=== PATIENT | female | born 1960 | race Caucasian/White ===

== ENCOUNTER 2020-03-24 11:48 | Inpatient (IN) | payer MEDICAID, OTHER ==
[~2020-03-24] VITALS: Ht 172.7 cm; Wt 60.0 kg
[2020-03-24 12:50] LABS: Basophils # (auto) 0.1 10 ^3/uL (0-0.2); Basophils % (auto) 0.8 % (0.0-2.0); Eosinophils # (auto) 0.1 10 ^3/uL (0-0.8); Eosinophils % (auto) 1.5 % (0.0-7.0); Hematocrit 41.4 % (36.0-46.0); Lymphocytes # (auto) 1.5 10 ^3/uL (0.4-5.4); Mean Corpuscular Hemoglobin 29.8 pg (28.0-32.0); Mean Corpuscular Hgb Conc. 33.9 g/dL (32.0-36.0); Monocytes # (auto) 0.3 10 ^3/uL (0-1.3); Monocytes % (auto) 5.1 % (0.0-12.0); Neutrophils # (auto) 4.7 10 ^3/uL (1.6-8.6); Neutrophils % (auto) 70.6 % (37.0-80.0); Nucleated Red Blood Cells % 0.1 %; Platelet Count (auto) 173 10^3/uL (140-450); Red Blood Cells 4.71 10^6/uL (4.0-5.20); Red Cell Distribution Width 13.4 % (11.8-14.3); White Blood Cell 6.7 10^3/uL (4.4-10.8)
[2020-03-24 13:11] LABS: Albumin 4.3 g/dL (3.4-5.0); Anion Gap 11 (5-15); Blood Urea Nitrogen 18 mg/dL (7-18); Calcium 9.4 mg/dL (8.5-10.1); Carbon Dioxide 20 mmol/L (21-32); Chloride 108 mmol/L (98-107); Glucose 206 mg/dL (74-106); Potassium 3.6 mmol/L (3.5-5.1); Sodium 139 mmol/L (136-145)
[2020-03-24 13:21] LABS: Alanine Aminotransferase 32 U/L (13-56); Alkaline Phosphatase 59 U/L (45-117); Aspartate Aminotransferase 14 U/L (15-37); BUN/Creatinine Ratio 17.1; Bilirubin, Total 0.6 mg/dL (0.2-1.0); GFR African American 69 mL/min; GFR Non-African American 57 mL/min; Total Protein 7.7 g/dL (6.4-8.2)
[2020-03-24 14:52] LABS: Urine WBC None Seen /hpf (0 - 5)
[2020-03-24] MEDS ORDERED: IOHEXOL 350 MG/ML 100ML IJ ONE (14:58)
[2020-03-24 15:05] LABS: Urine Bacteria NONE SEEN /hpf (None Seen); Urine Blood Negative /uL (Negative); Urine Specific Gravity 1.013 (1.001-1.035)
[2020-03-24] MEDS ORDERED: DEXTROSE (50%) 50ML SYRG IV PRN (19:00)
[2020-03-24] MEDS ORDERED: HYDROcodone-ACET 5/325MG TAB PO PRN (19:00)
[2020-03-24] MEDS ORDERED: hydrALAZINE HCL 20 MG/ML VL IV PRN (19:00)
[2020-03-24] MEDS ORDERED: ONDANSETRON HCL 4 MG/2 ML VIAL IV PRN (19:00)
[2020-03-24] MEDS ORDERED: ACETAMINOPHEN 500 MG TAB PO PRN (19:00)
[2020-03-24] MEDS ORDERED: NITROGLYCERIN 0.4 MG SL TAB SL PRN (19:00)
[2020-03-24] MEDS ORDERED: MORPHINE SULF INJ 2 MG/ML SYRINGE 1ML IV PRN ×2 (19:00)
[2020-03-24] MEDS ORDERED: METOCLOPRAMIDE HCL 5MG/ml INJ 2ml VIAL IV ONE (19:15)
[2020-03-24] MEDS: ATORVASTATIN 20 MG TAB PO SCH (21:48)
[2020-03-24] MEDS: METOPROLOL TARTRATE 25 MG TAB PO SCH (21:49)
[2020-03-24] MEDS: GABAPENTIN 100 MG CAP PO SCH (21:49)
[2020-03-24] MEDS: InsuLIN REG 1unit/0.01ml Soln (100units/ml) SC SCH (21:52)
[2020-03-24] MEDS: ACCU-CHEK COMFORT CURVE STRIP VI SCH (22:02)
[2020-03-24] MEDS: AMITRIPTYLINE HCL 10 MG TAB PO SCH (22:17)
[2020-03-25] MEDS: GABAPENTIN 100 MG CAP PO SCH ×3 (06:05→21:38)
[2020-03-25 06:33] LABS: Basophils # (auto) 0 10 ^3/uL (0-0.2); Basophils % (auto) 0.9 % (0.0-2.0); Eosinophils # (auto) 0.1 10 ^3/uL (0-0.8); Eosinophils % (auto) 2.5 % (0.0-7.0); Hemoglobin 14.5 g/dL (12.2-16.2); Lymphocytes # (auto) 1.6 10 ^3/uL (0.4-5.4); Mean Corpuscular Hemoglobin 30.3 pg (28.0-32.0); Mean Corpuscular Hgb Conc. 34.6 g/dL (32.0-36.0); Mean Corpuscular Volume 87.6 fL (80.0-100.0); Monocytes # (auto) 0.3 10 ^3/uL (0-1.3); Monocytes % (auto) 5.9 % (0.0-12.0); Neutrophils # (auto) 3.2 10 ^3/uL (1.6-8.6); Neutrophils % (auto) 59.7 % (37.0-80.0); Nucleated Red Blood Cells % 0.1 %; Platelet Count (auto) 145 10^3/uL (140-450); Red Blood Cells 4.79 10^6/uL (4.0-5.20); Red Cell Distribution Width 13.7 % (11.8-14.3); White Blood Cell 5.3 10^3/uL (4.4-10.8)
[2020-03-25 06:51] LABS: INR 1.02 (0.9-1.15); Partial Thromboplastin Time 22.5 sec (23.64-32.05)
[2020-03-25 06:54] LABS: Anion Gap 7 (5-15); Blood Urea Nitrogen 16 mg/dL (7-18); Carbon Dioxide 24 mmol/L (21-32); Chloride 109 mmol/L (98-107); GFR African American 89 mL/min; GFR Non-African American 74 mL/min; Glucose 155 mg/dL (74-106); Sodium 140 mmol/L (136-145)
[2020-03-25] MEDS: ACCU-CHEK COMFORT CURVE STRIP VI SCH ×4 (07:00→21:38)
[2020-03-25] MEDS: InsuLIN REG 1unit/0.01ml Soln (100units/ml) SC SCH ×4 (07:51→21:39)
[2020-03-25] MEDS: FAMOTIDINE 20 MG TAB PO SCH (09:38)
[2020-03-25] MEDS: METOPROLOL TARTRATE 25 MG TAB PO SCH ×2 (09:38→21:38)
[2020-03-25] MEDS: LISINOPRIL 10 MG TAB PO SCH (09:38)
[2020-03-25] MEDS: ASPirin-EC 81 mg tab PO SCH (09:38)
[2020-03-25] MEDS ORDERED: ADENOSINE IV STA (10:07)
[2020-03-25] MEDS ORDERED: GIVE UN DILUTED IV STA (10:07)
[2020-03-25 10:16] LABS: Cholesterol 235 mg/dL (< 200)
[2020-03-25 10:19] LABS: HDL Cholesterol 36 mg/dL (40-59); LDL Cholesterol 170 mg/dL (< 100); Triglycerides 160 mg/dL (< 150)
[2020-03-25] MEDS ORDERED: ADENOSINE 57 MG in GIVE UN-DILUTED 0 ML IV STA (11:14)
[2020-03-25 11:24] VITALS: BP 145/74
--- NOTE | 2020-03-25 15:51 | NUR ---
Telemetry admit from ER PAT VILLA admitted to Telemetry unit. No SBAR received . Patient oriented to Destinee Sepulveda, primary RN, unit, room, bed, and unit policies regarding patient care and visiting hours. Patient now on continuous telemetry monitoring, tele box #47A and telemetry reading on arrival to unit is SR. Patient placed on bedside oxygen, weighed by bedscale and encouraged to call if they need something. All questions and concerns addressed, patient verbalized understanding.
[2020-03-25] MEDS ORDERED: METF-370 PO (17:39)
--- NOTE | 2020-03-25 19:21 | NUR ---
closing shift Patient comfortably sitting up in bed. No s/s of distress/sob noted/stated. Bed at lowest locked position and call light within reach. Care endorsed to DIANE RN.
--- NOTE | 2020-03-25 19:40 | NUR ---
Opening Shift Note Assumed care of patient, awake and alert. No S/S of distress/SOB or pain. Patient aware of plan of care for tomorrow. Instructed on POC and to call for assist PRN, will continue to monitor for changes Q1hr and PRN.
[2020-03-25] MEDS: AMITRIPTYLINE HCL 10 MG TAB PO SCH (21:38)
[2020-03-25] MEDS: ATORVASTATIN 20 MG TAB PO SCH (21:38)
[2020-03-25 22:04] VITALS: BP 104/56
[2020-03-25 22:05] VITALS: BP_SYST 94; BP_SYST 96; BP_DIAS 49; BP_DIAS 58
[2020-03-26] VITALS (7 sets, daily range): BP systolic 92–115; BP diastolic 46–79
[2020-03-26 05:55] LABS: Basophils # (auto) 0.1 10 ^3/uL (0-0.2); Basophils % (auto) 0.9 % (0.0-2.0); Eosinophils # (auto) 0.1 10 ^3/uL (0-0.8); Eosinophils % (auto) 2.5 % (0.0-7.0); Hematocrit 42.7 % (36.0-46.0); Hemoglobin 14.3 g/dL (12.2-16.2); Lymphocytes # (auto) 1.6 10 ^3/uL (0.4-5.4); Lymphocytes % (auto) 28.1 % (10.0-50.0); Mean Corpuscular Hemoglobin 30.1 pg (28.0-32.0); Mean Corpuscular Hgb Conc. 33.6 g/dL (32.0-36.0); Mean Corpuscular Volume 89.5 fL (80.0-100.0); Monocytes # (auto) 0.3 10 ^3/uL (0-1.3); Monocytes % (auto) 5.6 % (0.0-12.0); Neutrophils # (auto) 3.5 10 ^3/uL (1.6-8.6); Neutrophils % (auto) 62.9 % (37.0-80.0); Nucleated Red Blood Cells % 0.1 %; Platelet Count (auto) 147 10^3/uL (140-450); Red Blood Cells 4.77 10^6/uL (4.0-5.20); Red Cell Distribution Width 13.9 % (11.8-14.3); White Blood Cell 5.6 10^3/uL (4.4-10.8)
[2020-03-26 06:08] LABS: INR 1.02 (0.9-1.15); Partial Thromboplastin Time 25.6 sec (23.64-32.05)
[2020-03-26 06:17] LABS: BUN/Creatinine Ratio 25.7; Calcium 9.1 mg/dL (8.5-10.1); Potassium 4.1 mmol/L (3.5-5.1)
[2020-03-26] MEDS: GABAPENTIN 100 MG CAP PO SCH ×3 (06:20→21:51)
[2020-03-26] MEDS: ACCU-CHEK COMFORT CURVE STRIP VI SCH ×4 (06:20→21:51)
[2020-03-26] MEDS: InsuLIN REG 1unit/0.01ml Soln (100units/ml) SC SCH ×4 (06:20→22:03)
--- NOTE | 2020-03-26 07:06 | NUR ---
Closing Note Endorsed care to dayshift nurse. No S/S of distress/SOB or pain.
--- NOTE | 2020-03-26 07:55 | NUR ---
Opening Shift Note Assumed care of patient, comfortably resting in bed, breath sounds even and unlabored. No S/S of distress/SOB. Instructed on POC and to call for assist PRN. Bed at lowest locked position and call light within reach. Will continue to monitor for changes Q1hr and PRN.
[2020-03-26] MEDS: METOPROLOL TARTRATE 25 MG TAB PO SCH ×2 (09:30→22:00)
[2020-03-26] MEDS: LISINOPRIL 10 MG TAB PO SCH (09:30)
[2020-03-26] MEDS: FAMOTIDINE 20 MG TAB PO SCH (09:32)
[2020-03-26] MEDS: ASPirin-EC 81 mg tab PO SCH (09:32)
--- NOTE | 2020-03-26 09:57 | NUR ---
Patient states" help i don't feel good" . Assessed patient and advised patient to stay in bed. VS:BP 129/72, HR 75, T97.4, Spo2 99%Blood glucose is 193, patient is refusing Insulin. Will continue to monitor.
[2020-03-26] MEDS ORDERED: SODIUM CHLORIDE 0.9% 1,000 ML IV ONE ×2 (10:15→20:45)
--- NOTE | 2020-03-26 11:45 | NUR ---
IV removal/IV leaking IV DC'd to left ac with clean sterile technique, catheter fully intact. Pressure dressing applied to site. Patient tolerated well.
--- NOTE | 2020-03-26 13:00 | NUR ---
IV insertion IV access obtained, via clean sterile technique by inserting gauge catheter at right FA after 3 attempts. IV secured properly. No trauma to site. Patient tolerated well.
--- NOTE | 2020-03-26 13:10 | NUR ---
Patient's daughter called requesting an update on moms status. Provided information after password was given .
--- NOTE | 2020-03-26 13:58 | NUR ---
Patient taken to label maker for procedure.
[2020-03-26] MEDS ORDERED: HEPARIN SODIUM (PORCINE) 5000 UNITS/ML 1ML VIAL ONE (15:33)
[2020-03-26] MEDS ORDERED: IODIXANOL 320MG/ML 100ML BTL IV ONE ×2 (15:33→15:55)
[2020-03-26] MEDS ORDERED: LIDOCAINE 2%HCL (LOCAL ANESTH.) INJ 20ML MDV ONE (15:33)
[2020-03-26] MEDS ORDERED: VERAPAMIL 2.5MG/ML INJ 2ML VIAL IV ONE (15:34)
[2020-03-26] MEDS ORDERED: MIDAZOLAM HCL 1MG/1ML-2 ML VIAL ONE (15:35)
[2020-03-26] MEDS ORDERED: fentaNYL CITRATE 100 MCG/2 ML VL ONE (15:35)
--- NOTE | 2020-03-26 16:29 | NUR ---
Nutrition Assessment Notes Please refer to link for full assessment notes. Est Energy needs: 8470-2213 kcals (23-25 kcal/kgBW) Est Protein needs: 67-82 gms/day (1.12-1.37 gm/kgBW) Will continue to monitor and reassess prn. Addendum: 03/26/20 at [address] Amended: Links added.
--- NOTE | 2020-03-26 16:40 | NUR ---
Patient back from manager labor relations, Left wrist has vasc band on. per laborer beam house RN start deflation at 1700. Patient is alert and oriented, no s/s of distress. Will continue to monitor.
--- NOTE | 2020-03-26 17:30 | NUR ---
Patient is a little anxious, she states "something is wrong i cant breathe" . Breath sounds are clear and unlabored, SPO2 98%. will continue to monitor.
--- NOTE | 2020-03-26 18:02 | NUR ---
Vasc Band Vasc band to Left wrist completely deflated, no redness,swelling noted. Patient is able to wiggle/move hand completely. Cap refill is less than 3 sec. Removed Vasc Band and applied tegaderm. Patient tolerated well.
--- NOTE | 2020-03-26 19:30 | NUR ---
Opening Note Assumed care of patient, awake and alert. Had a long conversation with the patient. 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 She easily cries, she is seeking professional help to deal with her depression and anxiety. Patient denies any suicide ideations. Patient denies pain, but she would like to have breathing treatments daily. Instructed patient to breath slowly when she feels anxious. Instructed on POC and to call for assist, will continue to monitor. Patient's room near the nurse's station.
--- NOTE | 2020-03-26 19:46 | NUR ---
Closing note Care endorsed to Taina BROOKS. No s/s of distress noted/stated.
[2020-03-26] MEDS: ATORVASTATIN 20 MG TAB PO SCH (21:52)
[2020-03-26] MEDS: AMITRIPTYLINE HCL 10 MG TAB PO SCH (21:58)
--- NOTE | 2020-03-26 22:10 | NUR ---
Blood Pressure medication held, B/P 96/ Patient on IV fluids. Patient denies discomfort.
--- NOTE | 2020-03-26 22:50 | NUR ---
Patient was transferred to room 51B
[2020-03-27] VITALS (7 sets, daily range): BP systolic 96–117; BP diastolic 50–67
--- NOTE | 2020-03-27 01:26 | NUR ---
Patient resting, no signs of distress note.
--- NOTE | 2020-03-27 05:36 | NUR ---
Patient continue to have low blood pressure, taken after patient walked to the bathroom was 99/56, heart heart when up to 140 BPM, but when back to 64 BPM right away once patient sat down. Patient denies any discomfort.
[2020-03-27] MEDS: ACCU-CHEK COMFORT CURVE STRIP VI SCH ×3 (06:03→17:56)
[2020-03-27] MEDS: GABAPENTIN 100 MG CAP PO SCH ×2 (06:04→14:50)
[2020-03-27] MEDS: InsuLIN REG 1unit/0.01ml Soln (100units/ml) SC SCH ×3 (06:10→17:56)
--- NOTE | 2020-03-27 06:11 | NUR ---
Patient asked to hold insulin this time, she wanted to wait till after she ate something, the medication was discarded accordingly.
--- NOTE | 2020-03-27 07:40 | NUR ---
OPENING SHIFT NOTE: PATIENT AWAKE SITTING UP IN BED. ICE WATER PITCHER SPILLED IN BED. FULL LINEN CHANGE COMPLETE. PATIENT C/O NAUSEA, WILL MEDICATE ORDERED. PATIENT UPDATED ON PLAN OF CARE. CALL LIGHT PLACED WITHIN REACH. WILL CONTINUE TO MONITOR.
[2020-03-27] MEDS: FAMOTIDINE 20 MG TAB PO SCH (08:16)
[2020-03-27] MEDS: ASPirin-EC 81 mg tab PO SCH (08:16)
[2020-03-27] MEDS ORDERED: ALBUTEROL SULF 2.5 MG/0.5ML(0.5%) NEB SOLN NEB PRN (09:45)
[2020-03-27] MEDS: LISINOPRIL 10 MG TAB PO SCH (10:00)
[2020-03-27] MEDS: METOPROLOL TARTRATE 25 MG TAB PO SCH (10:00)
--- NOTE | 2020-03-27 11:57 | NUR ---
PATIENT ABLE TO AMBULATE TO BATHROOM INDEPENDENTLY, STEADY GAIT.
[2020-03-27] MEDS ORDERED: IPRATROPIUM BROM 0.5 MG/2.5ML INH SOL NEB SCH (12:00)
[2020-03-27] MEDS ORDERED: ALBUTEROL SULF 2.5 MG/0.5ML(0.5%) NEB SOLN NEB SCH (12:00)
--- NOTE | 2020-03-27 19:01 | NUR ---
DISCHARGE: PATIENT DISCHARGED, A/OX4 RESPIRATIONS EVEN AND UNLABORED. ALL EDUCATION MATERIALS GIVEN. IV REMOVED, MANUAL PRESSURE APPLIED. TELE BOX RETURNED TO CARDIO UNIT. PATIENT TAKEN DOWN TO PRIVATE AUTO BY THIS RN WITHOUT INCIDENCE. PATIENT LEFT WITH ALL BELONGINGS.
== END 2020-03-27 19:00 | disposition home or self-care (01) | DRG 192 ==
LOC: ER 11:48 → TELE 11:49 → TELE-EAST 03-25 16:07
PROVIDERS: ADMIT Nurse Practitioner Acute Care; ATTEND Internal Medicine
PROC: B2151ZZ Fluoroscopy of Left Heart using Low Osmolar Contrast (ICD-10-PCS; principal; 2020-03-26)
PROC: 4A023N7 Measurement of Cardiac Sampling and Pressure, Left Heart, Percutaneous Approach (ICD-10-PCS; 2020-03-26)
PROC: B2111ZZ Fluoroscopy of Multiple Coronary Arteries using Low Osmolar Contrast (ICD-10-PCS; 2020-03-26)
DX: R07.89 Other chest pain (principal); E11.22 Type 2 diabetes mellitus with diabetic chronic kidney disease; N18.3 Chronic kidney disease, stage 3 (moderate); K21.9 Gastro-esophageal reflux disease without esophagitis; E78.5 Hyperlipidemia, unspecified; J45.909 Unspecified asthma, uncomplicated; Z90.710 Acquired absence of both cervix and uterus; Z83.3 Family history of diabetes mellitus; Z82.49 Family history of ischemic heart disease and other diseases of the circulatory system; I12.9 Hypertensive chronic kidney disease with stage 1 through stage 4 chronic kidney disease, or unspecified chronic kidney disease
CPT/HCPCS: 36415; 71046; 71275; 78452; 80048; 80053; 80061; 81001; 82962; 83036; 83880; 84484; 85025; 85379; 85610; 85730; 86141; 86850; 86900; 86901; 93005; 93017; 93306; 93458; 93886; 94640; 96374; 99152; G0378; J0153; J1815; J2250; J2405; Q9967

== ENCOUNTER 2020-12-11 13:28 | Inpatient (IN) | payer MEDICAID ==
[~2020-12-11] VITALS: Ht 172.7 cm; Wt 70.7 kg
[~2020-12-11 13:28] MED LIST: METF-370 PO
[2020-12-11] MEDS ORDERED: ONDANSETRON HCL 4 MG/2 ML VIAL IV ONE (14:00)
[2020-12-11] MEDS ORDERED: SODIUM CHLORIDE 0.9% 500 ML IVB ONE (14:00)
[2020-12-11] MEDS ORDERED: MORPHINE SULFATE 4 MG/ML SYR/VIAL IV ONE (14:00)
[2020-12-11 15:30] LABS: Basophils # (auto) 0 10 ^3/uL (0-0.2); Basophils % (auto) 0.9 % (0.0-2.0); Eosinophils # (auto) 0.1 10 ^3/uL (0-0.8); Eosinophils % (auto) 1.8 % (0.0-7.0); Hematocrit 38.2 % (36.0-46.0); Hemoglobin 13.1 g/dL (12.2-16.2); Lymphocytes # (auto) 1.3 10 ^3/uL (0.4-5.4); Lymphocytes % (auto) 25.8 % (10.0-50.0); Mean Corpuscular Hemoglobin 30.2 pg (28.0-32.0); Mean Corpuscular Hgb Conc. 34.3 g/dL (32.0-36.0); Mean Corpuscular Volume 88.1 fL (80.0-100.0); Monocytes # (auto) 0.2 10 ^3/uL (0-1.3); Monocytes % (auto) 4.2 % (0.0-12.0); Neutrophils # (auto) 3.3 10 ^3/uL (1.6-8.6); Neutrophils % (auto) 67.3 % (37.0-80.0); Nucleated Red Blood Cells % 0.2 %; Red Blood Cells 4.34 10^6/uL (4.0-5.20); Red Cell Distribution Width 13.3 % (11.8-14.3); White Blood Cell 4.9 10^3/uL (4.4-10.8)
[2020-12-11 15:51] LABS: Albumin 3.9 g/dL (3.4-5.0); Potassium 4.3 mmol/L (3.5-5.1)
[2020-12-11 15:55] LABS: BUN/Creatinine Ratio 16.3; Bilirubin, Total 0.4 mg/dL (0.2-1.0); Total Protein 7.4 g/dL (6.4-8.2)
[2020-12-11] MEDS ORDERED: metFORMIN HYDROCHLORIDE 500 MG TAB PO ONE (17:15)
[2020-12-11] MEDS ORDERED: ACETAMINOPHEN 325 MG TAB PO ONE (20:30)
[2020-12-11] MEDS ORDERED: LORA0.5T20 PO (20:30)
[2020-12-11] MEDS ORDERED: CHOL50007 PO (20:30)
[2020-12-11] MEDS ORDERED: LABETALOL HCL 5 MG/ML 4ML SYRINGE IV PRN (21:00)
[2020-12-11] MEDS ORDERED: MORPHINE SULFATE INJECTION 2 MG/ML SYRG IV PRN (21:00)
[2020-12-11] MEDS ORDERED: KETOROLAC TROMETH 60MG/2ML VIAL IM PRN (21:00)
[2020-12-11] MEDS ORDERED: LACTULOSE 20Gm/30ML SOLN PO PRN (21:00)
[2020-12-11] MEDS ORDERED: LORazepam 0.5 MG TAB PO PRN (21:00)
[2020-12-11] MEDS ORDERED: ONDANSETRON HCL 4 MG/2 ML VIAL IV PRN (21:00)
[2020-12-11] MEDS ORDERED: NITROGLYCERIN 0.4 MG SL TAB SL PRN (21:00)
[2020-12-11 21:55] LABS: Urine Bacteria NONE SEEN /hpf (None Seen); Urine Blood Negative /uL (Negative); Urine Specific Gravity 1.012 (1.001-1.035); Urine WBC 1 /hpf (0 - 5)
[2020-12-11] MEDS: INSULIN LANTUS (GLARGINE) 1 /0.01ml (100units/ml) SC SCH (22:00)
[2020-12-11] MEDS ORDERED: BUDESONIDE (INHALATION) 0.5 MG/2 ML NEB NEB SCH (22:00)
[2020-12-11 22:28] VITALS: BP 146/67
[2020-12-11] MEDS: SUCRALFATE 1 GM TAB PO SCH (22:30)
[2020-12-12 06:57] LABS: Basophils # (auto) 0 10 ^3/uL (0-0.2); Basophils % (auto) 0.9 % (0.0-2.0); Eosinophils # (auto) 0.1 10 ^3/uL (0-0.8); Eosinophils % (auto) 3.1 % (0.0-7.0); Hematocrit 36.7 % (36.0-46.0); Hemoglobin 12.7 g/dL (12.2-16.2); Lymphocytes # (auto) 1.5 10 ^3/uL (0.4-5.4); Mean Corpuscular Hgb Conc. 34.5 g/dL (32.0-36.0); Mean Corpuscular Volume 86.8 fL (80.0-100.0); Monocytes # (auto) 0.2 10 ^3/uL (0-1.3); Monocytes % (auto) 5.2 % (0.0-12.0); Neutrophils # (auto) 2.2 10 ^3/uL (1.6-8.6); Neutrophils % (auto) 54.8 % (37.0-80.0); Nucleated Red Blood Cells % 0.2 %; Red Blood Cells 4.22 10^6/uL (4.0-5.20); Red Cell Distribution Width 13.1 % (11.8-14.3); White Blood Cell 4.1 10^3/uL (4.4-10.8)
[2020-12-12] MEDS: SUCRALFATE 1 GM TAB PO SCH ×4 (07:01→22:03)
[2020-12-12 07:22] LABS: Albumin 3.5 g/dL (3.4-5.0); Potassium 4.5 mmol/L (3.5-5.1)
[2020-12-12 07:27] LABS: BUN/Creatinine Ratio 13.9; Bilirubin, Total 0.6 mg/dL (0.2-1.0); Total Protein 6.7 g/dL (6.4-8.2)
[2020-12-12] MEDS ORDERED: FLUCONAZOLE 100 MG TAB PO ONE (09:15)
[2020-12-12] MEDS: cefTRIAXone 1GM/50ML D5W 50 ML IV SCH (09:20)
[2020-12-12] MEDS: PANTOPRAZOLE 40 MG TAB PO SCH (09:30)
[2020-12-12 10:45] VITALS: BP 137/69
[2020-12-12 11:20] VITALS: BP 129/59
[2020-12-12] MEDS ORDERED: DEXTROSE (50%) 50ML SYRG IV PRN (12:00)
[2020-12-12] MEDS ORDERED: LORazepam 0.5 MG TAB PO ONE (13:30)
[2020-12-12] MEDS: ACCU-CHEK COMFORT CURVE STRIP VI SCH ×2 (17:04→22:02)
[2020-12-12] MEDS: InsuLIN REG 1unit/0.01ml Soln (100units/ml) SC SCH ×2 (17:05→22:14)
[2020-12-12 17:20] VITALS: BP 120/53
[2020-12-12] MEDS: ACETAMINOPHEN 500 MG TAB PO PRN (21:53)
[2020-12-12 22:00] VITALS: BP_SYST 115; BP_SYST 128; BP_DIAS 65; BP_DIAS 71
[2020-12-12] MEDS: LORazepam 0.5 MG TAB PO SCH (22:00)
[2020-12-12] MEDS: INSULIN LANTUS (GLARGINE) 1 /0.01ml (100units/ml) SC SCH (22:16)
[2020-12-13 05:00] VITALS: BP 111/60
[2020-12-13 05:52] LABS: Basophils # (auto) 0 10 ^3/uL (0-0.2); Basophils % (auto) 0.9 % (0.0-2.0); Eosinophils # (auto) 0.1 10 ^3/uL (0-0.8); Eosinophils % (auto) 2.8 % (0.0-7.0); Hematocrit 36.8 % (36.0-46.0); Hemoglobin 12.8 g/dL (12.2-16.2); Lymphocytes # (auto) 1.6 10 ^3/uL (0.4-5.4); Mean Corpuscular Hemoglobin 30.4 pg (28.0-32.0); Mean Corpuscular Hgb Conc. 34.9 g/dL (32.0-36.0); Mean Corpuscular Volume 87.1 fL (80.0-100.0); Monocytes # (auto) 0.3 10 ^3/uL (0-1.3); Monocytes % (auto) 6.4 % (0.0-12.0); Neutrophils # (auto) 2.7 10 ^3/uL (1.6-8.6); Neutrophils % (auto) 55.9 % (37.0-80.0); Nucleated Red Blood Cells % 0.3 %; Red Blood Cells 4.23 10^6/uL (4.0-5.20); Red Cell Distribution Width 13.6 % (11.8-14.3); White Blood Cell 4.8 10^3/uL (4.4-10.8)
[2020-12-13] MEDS ORDERED: BUDESONIDE (INHALATION) 0.5 MG/2 ML NEB ONE (05:55)
[2020-12-13] MEDS: SUCRALFATE 1 GM TAB PO SCH ×4 (06:12→21:04)
[2020-12-13] MEDS: ACCU-CHEK COMFORT CURVE STRIP VI SCH ×4 (06:13→21:04)
[2020-12-13] MEDS: InsuLIN REG 1unit/0.01ml Soln (100units/ml) SC SCH ×4 (06:15→21:09)
[2020-12-13 06:24] LABS: Potassium 4.1 mmol/L (3.5-5.1)
[2020-12-13 06:29] LABS: BUN/Creatinine Ratio 14.9; Calcium 9.3 mg/dL (8.5-10.1)
[2020-12-13] MEDS: ALBUTEROL SULF 2.5 MG/0.5ML(0.5%) NEB SOLN NEB PRN ×3 (07:41→18:29)
[2020-12-13] MEDS: cefTRIAXone 1GM/50ML D5W 50 ML IV SCH (08:55)
[2020-12-13] MEDS: LORazepam 0.5 MG TAB PO SCH ×2 (08:56→21:04)
[2020-12-13] MEDS: PANTOPRAZOLE 40 MG TAB PO SCH (08:59)
[2020-12-13 09:00] VITALS: BP 109/60
[2020-12-13 09:21] LABS: INR 1.01 (0.9-1.15); Partial Thromboplastin Time 24.7 sec (23.0-31.2)
[2020-12-13] MEDS ORDERED: LIDOCAINE VISCOUS 2% 15ML UD ONE (12:43)
[2020-12-13 13:00] VITALS: BP 113/75
[2020-12-13] MEDS: fentaNYL CITRATE 100 MCG/2 ML VL ONE ×2 (13:13→13:16)
[2020-12-13] MEDS: diphenhdrAMINE HCL 50 MG/1 ML VL ONE ×2 (13:13→13:16)
[2020-12-13] MEDS: MIDAZOLAM HCL 5 MG/ML-1ML VIAL ONE ×2 (13:13→13:16)
[2020-12-13 17:09] VITALS: BP 125/55
[2020-12-13] MEDS: INSULIN LANTUS (GLARGINE) 1 /0.01ml (100units/ml) SC SCH (21:08)
[2020-12-13] MEDS: ACETAMINOPHEN 500 MG TAB PO PRN (21:09)
[2020-12-13 22:00] VITALS: BP 111/59
[2020-12-14 05:00] VITALS: BP 110/57
[2020-12-14] MEDS: InsuLIN REG 1unit/0.01ml Soln (100units/ml) SC SCH ×4 (05:31→21:42)
[2020-12-14 05:59] LABS: Basophils # (auto) 0 10 ^3/uL (0-0.2); Basophils % (auto) 0.7 % (0.0-2.0); Eosinophils # (auto) 0.1 10 ^3/uL (0-0.8); Eosinophils % (auto) 1.4 % (0.0-7.0); Hematocrit 34.9 % (36.0-46.0); Hemoglobin 11.9 g/dL (12.2-16.2); Lymphocytes % (auto) 18.5 % (10.0-50.0); Mean Corpuscular Hemoglobin 29.9 pg (28.0-32.0); Mean Corpuscular Hgb Conc. 34.1 g/dL (32.0-36.0); Mean Corpuscular Volume 87.7 fL (80.0-100.0); Monocytes # (auto) 0.3 10 ^3/uL (0-1.3); Neutrophils # (auto) 4.1 10 ^3/uL (1.6-8.6); Neutrophils % (auto) 74.4 % (37.0-80.0); Nucleated Red Blood Cells % 0.1 %; Red Blood Cells 3.98 10^6/uL (4.0-5.20); Red Cell Distribution Width 13.3 % (11.8-14.3); White Blood Cell 5.5 10^3/uL (4.4-10.8)
[2020-12-14] MEDS: ACETAMINOPHEN 500 MG TAB PO PRN ×2 (06:02→21:38)
[2020-12-14] MEDS: SUCRALFATE 1 GM TAB PO SCH ×4 (06:02→21:37)
[2020-12-14] MEDS: ACCU-CHEK COMFORT CURVE STRIP VI SCH ×4 (06:03→21:37)
[2020-12-14 06:16] LABS: BUN/Creatinine Ratio 15.3; Calcium 9.6 mg/dL (8.5-10.1); Potassium 3.8 mmol/L (3.5-5.1)
[2020-12-14] MEDS: LORazepam 0.5 MG TAB PO SCH ×2 (08:15→21:37)
[2020-12-14] MEDS: cefTRIAXone 1GM/50ML D5W 50 ML IV SCH (08:15)
[2020-12-14] MEDS: PANTOPRAZOLE 40 MG TAB PO SCH (08:15)
[2020-12-14 09:00] VITALS: BP 126/66
[2020-12-14 13:00] VITALS: BP 111/80
[2020-12-14 17:00] VITALS: BP 139/71
[2020-12-14 20:16] VITALS: BP 139/71
[2020-12-14] MEDS: INSULIN LANTUS (GLARGINE) 1 /0.01ml (100units/ml) SC SCH (21:42)
[2020-12-14 22:00] VITALS: BP 120/64
[2020-12-15 05:00] VITALS: BP 99/57
[2020-12-15 06:13] LABS: Basophils # (auto) 0 10 ^3/uL (0-0.2); Basophils % (auto) 0.6 % (0.0-2.0); Eosinophils # (auto) 0.1 10 ^3/uL (0-0.8); Eosinophils % (auto) 1.7 % (0.0-7.0); Hemoglobin 12.3 g/dL (12.2-16.2); Lymphocytes # (auto) 0.9 10 ^3/uL (0.4-5.4); Lymphocytes % (auto) 16.8 % (10.0-50.0); Mean Corpuscular Hemoglobin 30.7 pg (28.0-32.0); Mean Corpuscular Hgb Conc. 35.2 g/dL (32.0-36.0); Mean Corpuscular Volume 87.1 fL (80.0-100.0); Monocytes # (auto) 0.2 10 ^3/uL (0-1.3); Neutrophils # (auto) 3.9 10 ^3/uL (1.6-8.6); Neutrophils % (auto) 77.9 % (37.0-80.0); Nucleated Red Blood Cells % 0.1 %; Red Blood Cells 4.02 10^6/uL (4.0-5.20); Red Cell Distribution Width 13.3 % (11.8-14.3); White Blood Cell 5.1 10^3/uL (4.4-10.8)
[2020-12-15] MEDS: InsuLIN REG 1unit/0.01ml Soln (100units/ml) SC SCH ×2 (06:19→11:38)
[2020-12-15] MEDS: ACCU-CHEK COMFORT CURVE STRIP VI SCH ×2 (06:20→11:34)
[2020-12-15] MEDS: SUCRALFATE 1 GM TAB PO SCH ×2 (06:27→11:34)
[2020-12-15 06:35] LABS: Potassium 3.7 mmol/L (3.5-5.1)
[2020-12-15 06:47] LABS: BUN/Creatinine Ratio 15.4
[2020-12-15 08:00] VITALS: BP 119/65
[2020-12-15 08:37] VITALS: BP 119/65
[2020-12-15] MEDS: cefTRIAXone 1GM/50ML D5W 50 ML IV SCH (09:37)
[2020-12-15] MEDS: LORazepam 0.5 MG TAB PO SCH (09:38)
[2020-12-15] MEDS: PANTOPRAZOLE 40 MG TAB PO SCH (09:38)
[2020-12-15] MEDS: ACETAMINOPHEN 500 MG TAB PO PRN (10:00)
[2020-12-15 13:00] VITALS: BP 139/69
[2020-12-15 14:01] VITALS: BP 152/98
== END 2020-12-15 15:04 | disposition home or self-care (01) | DRG 243 ==
LOC: ER 13:28 → OVERFLOW 13:29 → CENTRAL 12-12 10:20
PROVIDERS: ADMIT Family Medicine; ATTEND Internal Medicine
PROC: 0DB88ZX Excision of Small Intestine, Via Natural or Artificial Opening Endoscopic, Diagnostic (ICD-10-PCS; 2020-12-13)
PROC: 0DB68ZX Excision of Stomach, Via Natural or Artificial Opening Endoscopic, Diagnostic (ICD-10-PCS; 2020-12-13)
PROC: 0DB48ZX Excision of Esophagogastric Junction, Via Natural or Artificial Opening Endoscopic, Diagnostic (ICD-10-PCS; principal; 2020-12-13 13:17)
DX: K21.00 Gastro-esophageal reflux disease with esophagitis, without bleeding (principal); N13.70 Vesicoureteral-reflux, unspecified; E11.65 Type 2 diabetes mellitus with hyperglycemia; K29.00 Acute gastritis without bleeding; K59.00 Constipation, unspecified; N39.0 Urinary tract infection, site not specified; K52.9 Noninfective gastroenteritis and colitis, unspecified; K59.09 Other constipation; J45.909 Unspecified asthma, uncomplicated; R07.89 Other chest pain; F41.9 Anxiety disorder, unspecified; K44.9 Diaphragmatic hernia without obstruction or gangrene; Z20.822 Contact with and (suspected) exposure to COVID-19; Z82.49 Family history of ischemic heart disease and other diseases of the circulatory system; Z82.5 Family history of asthma and other chronic lower respiratory diseases; Z83.3 Family history of diabetes mellitus; Z90.710 Acquired absence of both cervix and uterus; Z88.5 Allergy status to narcotic agent; Z88.2 Allergy status to sulfonamides
CPT/HCPCS: 36415; 43239; 71045; 74176; 76775; 80048; 80053; 81001; 82270; 82962; 83036; 83690; 84443; 85025; 85610; 85730; 86850; 86900; 86901; 87045; 87086; 87426; 87427; 93005; 94640; 96361; 96365; 96375; G0378; J0696; J1815; J2250; J2405